=== PATIENT | female | born 1955 ===

== ENCOUNTER 2017-07-09 16:15 | Emergency (ER) | payer OTHER ==
[2017-07-09 16:39] VITALS: BMI 23.8
[2017-07-09 17:31] VITALS: BP 125/81; PULSE 72; RESP 16; TEMP 98.5; O2SAT 99
--- NOTE | 2017-07-09 17:56 | C.PDOC ---
History Of Present Illness 62 year old female presents to the ER stating her right ear is clogged. Patient reports she has muffled hearing from the ear, she has been using OTC ear drops to remove the cerumen with no relief. Denies headache or fever. Time Seen by Provider: 07/09/17 16:44 Chief Complaint (Nursing): ENT Problem History Per: Patient History/Exam Limitations: None Onset/Duration Of Symptoms: Days Current Symptoms Are (Timing): Still Present Quality (Ear): Other (Cerumen clogged) Symptoms Have Been: Continuous Past Medical History Reviewed: Historical Data, Nursing Documentation, Vital Signs Vital Signs: Last Vital Signs Temp 98.5 F 07/09/17 17:31 Pulse 72 07/09/17 17:31 Resp 16 07/09/17 17:31 BP 125/81 07/09/17 17:31 Pulse Ox 99 07/09/17 18:34 Surgical History: Cholecystectomy Family History: States: Unknown Family Hx - Social History Hx Alcohol Use: No Hx Substance Use: No - Immunization History Hx Tetanus Toxoid Vaccination: No Hx Influenza Vaccination: No Hx Pneumococcal Vaccination: No Review Of Systems Constitutional: Negative for: Fever Eyes: Negative for: Vision Change, Redness ENT: Positive for: Other (Clogged ear, Muffled hearing) Cardiovascular: Negative for: Palpitations Respiratory: Negative for: Cough, Shortness of Breath Musculoskeletal: Negative for: Neck Pain Skin: Negative for: Rash Neurological: Negative for: Headache, Dizziness Physical Exam - Physical Exam Appears: Non-toxic, No Acute Distress Skin: Normal Color, Warm, Dry Head: Atraumatic, Normacephalic Eye(s): bilateral: Normal Inspection Ear(s): Left: Normal (mild cerumen), Right: TM Obscured By Wax (Impacted cerumen , TM not visualized) Nose: Normal Oral Mucosa: Moist Throat: Normal, No Erythema Neck: Normal, Supple Chest: Symmetrical Extremity: Normal ROM, No Deformity Neurological/Psych: Oriented x3, Normal Speech ED Course And Treatment O2 Sat by Pulse Oximetry: 99 Medical Decision Making Medical Decision Making: Ear lavage performed with relief. Patient is resting comfortably in the ER with no pain or discomfort, will discharge home with instructions to follow up with PMD or ENT if symptoms persist. Disposition Counseled Patient/Family Regarding: Diagnosis, Need For Followup - Disposition Referrals: Mohsen Iyer MD [Staff Provider] - Disposition: HOME/ ROUTINE Disposition Time: 17:55 Condition: GOOD Additional Instructions: lavado de orejas realizado para comer puede sentirse aturdido, lo cual es comn por favor, sigue con ENT Instructions: Cerumen Impaction (ED) Forms: [employer] ([place]), Pharmacopeia (Mongolian) Print Language: [place] - POA Present On Arrival: None - Clinical Impression Clinical Impression: Cerumen impaction - PA / PUBLIC HEALTH INSPECTOR / Resident Statement MD/DO has reviewed & agrees with the documentation as recorded. - Scribe Statement The provider has reviewed the documentation as recorded by the Scribe Varghese Bailey All medical record entries made by the Scribe were at my direction and personally dictated by me. I have reviewed the chart and agree that the record accurately reflects my personal performance of the history, physical exam, medical decision making, and the department course for this patient. I have also personally directed, reviewed, and agree with the discharge instructions and disposition. Procedures - Ear Wax Removal Right Ear Cerumenolytic Used: 5-10 % Sodium Bicarb solution Result: Re-examined: some cerumen remains TM Examination: TM(s) intact, normal appearance Ear Canal Exam: atraumatic Patient Tolerated Procedure: well Complications: no problems Technique: ear canal curetted
== END 2017-07-09 18:12 | disposition home or self-care (01) ==
LOC: C.ER 16:15
DX: H61.21 Impacted cerumen, right ear (principal)